=== PATIENT | female | born 1955 | race Caucasian/White ===

== ENCOUNTER 2019-03-07 06:25 | Day surgery (SDC) | payer MEDICARE, OTHER ==
[~2019-03-07] VITALS: Ht 165.1 cm; Wt 71.0 kg
[~2019-03-07 06:25] MED LIST: SODIUM CHLORIDE 0.9% 1,000 ML ONE
[2019-03-07] MEDS ORDERED: SODIUM CHLORIDE 0.9% 1,000 ML IV ONE (06:30)
[2019-03-07] MEDS ORDERED: MIDAZOLAM HCL 2 MG/2 ML VIAL ONE (07:34)
[2019-03-07] MEDS ORDERED: FentaNYL CITRATE-PF 100 MCG/2 ML VIAL ONE (07:34)
[2019-03-07] MEDS ORDERED: MONT10TA21 PO (07:53)
[2019-03-07] MEDS ORDERED: DOXY100C PO (07:53)
[2019-03-07] MEDS ORDERED: PRED10 PO (07:53)
[2019-03-07] MEDS ORDERED: OMEP20 PO (07:53)
[2019-03-07] MEDS ORDERED: ESCI10TA PO (07:53)
[2019-03-07] MEDS ORDERED: MethylPREDNISolone SOD SUCC 125 MG/2 ML VIAL ONE (09:24)
[2019-03-07] MEDS ORDERED: MethylPREDNISolone SOD SUCC 40 MG/ML VIAL IVP ONE (09:45)
[2019-03-07] MEDS ORDERED: MethylPREDNISolone SOD SUCC 125 MG/2 ML VIAL IVP ONE (10:00)
[2019-03-07] MEDS ORDERED: ALBUTEROL SULFATE 2.5 MG/0.5 ML NEB SOLUTION NEB ONE (17:52)
[2019-03-07] MEDS ORDERED: LIDOCAINE 4% 50 ML SOLUTION ONE (17:52)
[2019-03-07] MEDS ORDERED: BENZOCAINE 20% 50 MCG/SPRAY 57 GM ONE (17:52)
[2019-03-07] MEDS ORDERED: LIDOCAINE 2% 30 ML JELLY ONE (17:52)
[2019-03-07] MEDS ORDERED: OXYGEN THERAPY IH SCH (20:00)
== END 2019-03-07 10:50 | disposition home or self-care (01) ==
LOC: SURGERY 06:25
PROVIDERS: ATTEND Internal Medicine Critical Care Medicine
DX: R05 Cough (principal); R91.1 Solitary pulmonary nodule; J47.9 Bronchiectasis, uncomplicated; J34.89 Other specified disorders of nose and nasal sinuses; B37.0 Candidal stomatitis; J38.4 Edema of larynx; J98.8 Other specified respiratory disorders; R19.09 Other intra-abdominal and pelvic swelling, mass and lump
CPT/HCPCS: 31623; 31624; 71045; 87070; 87101; 87206; 87220; 88184; 88185; J2250; J2930; J3010; J7030; 87015; 87205; 88108; 88312

== ENCOUNTER 2021-09-18 06:28 | Day surgery (SDC) | payer MEDICARE, OTHER ==
[2021-09-16 14:04] LABS: COVID AG,FIA SOURCE NASOPHARYNGEAL
[~2021-09-18] VITALS: Ht 167.6 cm; Wt 72.7 kg
[~2021-09-18 06:28] MED LIST changes: +DOXY100C PO; +ESCI-8 PO; +MONT-35 PO; +OMEP20 PO; +PRED-729 PO
[2021-09-18] MEDS ORDERED: SODIUM CHLORIDE 0.9% 1,000 ML IV ONE (07:00)
[2021-09-18] MEDS ORDERED: FentaNYL CITRATE PF 100 MCG/2 ML VIAL ONE (07:53)
[2021-09-18] MEDS ORDERED: MIDAZOLAM HCL 5 MG/ML VIAL ONE (07:53)
[2021-09-18] MEDS ORDERED: MethylPREDNISolone SOD SUCC 125 MG/2 ML VIAL IVP ONE (09:30)
[2021-09-18] MEDS ORDERED: MethylPREDNISolone SOD SUCC 125 MG/2 ML VIAL ONE (10:06)
[2021-09-18] MEDS ORDERED: OXYGEN THERAPY IH SCH (20:00)
== END 2021-09-18 11:05 | disposition home or self-care (01) ==
LOC: SURGERY 06:28
PROVIDERS: ATTEND Internal Medicine Critical Care Medicine
DX: B37.0 Candidal stomatitis (principal); Z79.899 Other long term (current) drug therapy
CPT/HCPCS: 31623; 31624; 71045; 87015; 87070; 87101; 87206; 87220; 87426; 88184; 88185; C9803; J2250; J2930; J3010; J7030; 88108; 88305

== ENCOUNTER 2023-03-14 07:08 | Day surgery (SDC) | payer MEDICARE, OTHER ==
[~2023-03-14] VITALS: Ht 167.6 cm; Wt 72.6 kg
[~2023-03-14 07:08] MED LIST changes: +ALBU18HF7 IH; +BUDE10.7 IH; -DOXY100C PO; -ESCI-8 PO; +FLUT16SP NASAL; +NYST100033 PO; -OMEP20 PO; +PANT40TA54 PO; -SODIUM CHLORIDE 0.9% 1,000 ML ONE; +SUCR1ORA15 PO
[2023-03-14] MEDS ORDERED: SODIUM CHLORIDE 0.9% 1,000 ML ONE (07:19)
[2023-03-14] MEDS ORDERED: MIDAZOLAM HCL 2 MG/2 ML VIAL ONE (07:56)
[2023-03-14] MEDS ORDERED: FentaNYL CITRATE PF 100 MCG/2 ML VIAL ONE (07:56)
[2023-03-14] MEDS ORDERED: SODIUM CHLORIDE 0.9% 1,000 ML IV ONE (09:00)
[2023-03-14] MEDS ORDERED: MethylPREDNISolone SOD SUCC 125 MG/2 ML VIAL IVP ONE (09:00)
[2023-03-14 09:25] VITALS: PULSE 114; RESP 16; O2SAT 100
[2023-03-14] MEDS ORDERED: MethylPREDNISolone SOD SUCC 125 MG/2 ML VIAL ONE (09:29)
[2023-03-14] MEDS ORDERED: LIDOCAINE 2% 11 ML JELLY ONE (16:38)
[2023-03-14] MEDS ORDERED: LIDOCAINE 4% 50 ML SOLUTION ONE (16:38)
[2023-03-14] MEDS ORDERED: BENZOCAINE 20% 50 MCG/SPRAY 57 GM ONE (16:38)
[2023-03-14] MEDS ORDERED: LEVALBUTEROL 1.25 MG/0.5 ML NEB SOLUTION NEB ONE (16:38)
[2023-03-14] MEDS ORDERED: ALBUTEROL SULFATE 2.5 MG/0.5 ML NEB SOLUTION NEB ONE (16:38)
== END 2023-03-14 12:15 | disposition home or self-care (01) ==
LOC: SURGERY 07:08
PROVIDERS: ATTEND Internal Medicine Critical Care Medicine
DX: R05.3 Chronic cough (principal); J81.1 Chronic pulmonary edema; R06.2 Wheezing; R49.0 Dysphonia; R04.2 Hemoptysis; R06.1 Stridor; R23.8 Other skin changes; R91.1 Solitary pulmonary nodule; J98.09 Other diseases of bronchus, not elsewhere classified; J98.8 Other specified respiratory disorders
CPT/HCPCS: 87206; 87101; 87220; 87070; 31623; 31624; 94640; 71045; 87015; J3010; J2250; J2930; Q9967; J7030; J7613; Z7610

== ENCOUNTER 2024-02-29 07:03 | Day surgery (SDC) | payer MEDICARE, OTHER ==
[~2024-02-29] VITALS: Ht 170.2 cm; Wt 75.0 kg
[~2024-02-29 07:03] MED LIST changes: -NYST100033 PO; -PANT40TA54 PO; -PRED-729 PO; +SODIUM CHLORIDE 0.9% 1,000 ML ONE; +SUCR1ORA PO; -SUCR1ORA15 PO
[2024-02-29] MEDS ORDERED: FentaNYL CITRATE PF 100 MCG/2 ML VIAL ONE (07:58)
[2024-02-29] MEDS ORDERED: MIDAZOLAM HCL 2 MG/2 ML VIAL ONE (07:58)
[2024-02-29] MEDS: SODIUM CHLORIDE 0.9% 1,000 ML IV ONE (08:47)
[2024-02-29 10:22] VITALS: PULSE 121; RESP 18; O2SAT 97
[2024-02-29] MEDS: FentaNYL CITRATE PF 100 MCG/2 ML VIAL IVP ONE (10:25)
[2024-02-29] MEDS: MIDAZOLAM HCL 2 MG/2 ML VIAL IVP ONE (10:25)
[2024-02-29] MEDS ORDERED: MethylPREDNISolone SOD SUCC 125 MG/2 ML VIAL ONE (10:32)
[2024-02-29] MEDS: MethylPREDNISolone SOD SUCC 125 MG/2 ML VIAL IVP ONE (10:52)
== END 2024-02-29 11:55 | disposition home or self-care (01) ==
LOC: SURGERY 07:03
PROVIDERS: ATTEND Internal Medicine Critical Care Medicine
DX: R05.3 Chronic cough (principal); R06.1 Stridor; J44.9 Chronic obstructive pulmonary disease, unspecified; Z87.891 Personal history of nicotine dependence; Z86.16 Personal history of COVID-19; Z90.49 Acquired absence of other specified parts of digestive tract; Z98.890 Other specified postprocedural states
CPT/HCPCS: 87206; 87101; 87220; 87070; 88108; 93005; 31623; 31624; 71045; 87015; J3010; J2250; J2919; J7030

== ENCOUNTER → 2025-03-25 | Day surgery (SDC) | payer OTHER ==
[~2025-03-25] VITALS: Ht 170.2 cm; Wt 75.0 kg
[~2025-03-25] MED LIST changes: +ALBUTEROL SULFATE 2.5 MG/0.5 ML NEB SOLUTION NEB ONE; +BENZOCAINE 20% 50 MCG/SPRAY 57 GM ONE; +FentaNYL CITRATE PF 100 MCG/2 ML VIAL ONE; +LIDOCAINE 2% 11 ML JELLY ONE; +LIDOCAINE 4% 50 ML SOLUTION ONE; +MIDAZOLAM HCL 2 MG/2 ML VIAL ONE; -SODIUM CHLORIDE 0.9% 1,000 ML ONE; -SUCR1ORA PO; +SUCR1ORA42 PO
[2025-03-25] MEDS: SODIUM CHLORIDE 0.9% 1,000 ML IV ONE (09:52)
[2025-03-25 10:08] VITALS: PULSE 96; RESP 17; O2SAT 96
== END | disposition home or self-care (01) ==
LOC: SURGERY 07:17
PROVIDERS: ATTEND Internal Medicine Critical Care Medicine
DX: J38.4 Edema of larynx (principal); B37.0 Candidal stomatitis; R05.3 Chronic cough; R06.2 Wheezing; R04.2 Hemoptysis; J18.9 Pneumonia, unspecified organism; Z87.891 Personal history of nicotine dependence; Z90.49 Acquired absence of other specified parts of digestive tract; Z98.890 Other specified postprocedural states; Z85.89 Personal history of malignant neoplasm of other organs and systems
CPT/HCPCS: 31623; 87206; 87101; 87220; 87070; 31624; 71045; 87015; J3010; J2250; 88108; J7613; Z7610